=== PATIENT | female | born 1975 | race Asian ===

== ENCOUNTER 2018-07-29 03:07 | Inpatient (IN) | payer OTHER ==
[2018-07-29 03:42] VITALS: BMI 27.6
[2018-07-29] MEDS ORDERED: Ondansetron PF 4 MG/2 ML Vial IVP PRN ×3 (04:12→13:33)
[2018-07-29] MEDS ORDERED: Promethazine HCl 25 MG/ML VIAL IM PRN ×2 (04:12→05:27)
[2018-07-29] MEDS ORDERED: Acetaminophen 500 MG TAB PO PRN (04:12)
[2018-07-29] MEDS ORDERED: Butorphanol Tartrate 1 MG/ML VIAL SLOW IVP PRN (04:12)
[2018-07-29] MEDS: Lactated Ringer's 1,000 ML IV SCH ×3 (04:13→08:24)
[2018-07-29] MEDS ORDERED: Methylergonovine 0.2 MG/ML VIAL IM PRN (04:15)
[2018-07-29] MEDS ORDERED: Carboprost 250 MCG/ML AMP IM PRN (04:15)
[2018-07-29] MEDS ORDERED: Misoprostol 200 MCG TAB RC PRN (04:15)
[2018-07-29] MEDS ORDERED: NS w/ Oxytocin 10 units 500 ML IV SCH ×2 (04:15)
[2018-07-29] MEDS ORDERED: Ibuprofen 800 MG TAB PO PRN (04:15)
[2018-07-29] MEDS ORDERED: Lidocaine 1% (PF) 30 ML VIAL SC PRN (04:15)
[2018-07-29] MEDS ORDERED: NS / Oxytocin 40 units/1000ml 1,000 ML IV SCH ×2 (04:15→13:45)
[2018-07-29 04:35] LABS: Hemoglobin 11.3 g/dL (12.0-16.0); Mean Corpuscular HGB CONC 31.8 g/dL (32.0-36.0); Mean Corpuscular Hemoglobin 28.4 pg (27.0-31.0); Mean Corpuscular Volume 89.3 fL (78.0-98.0); Mean Platelet Volume 9.1 fL (7.4-10.4); Platelet Count 213 thou/uL (130-400); RBC Distribution Width 11.4 % (11.5-14.5); Red Blood Cell (RBC) Count 3.98 mill/uL (4.20-5.40)
[2018-07-29] MEDS ORDERED: Fentanyl 4 mcg/Bup 0.1% Cadd 100 ML ONE (04:49)
[2018-07-29 05:09] LABS: Syphilis Antibody Nonreactive (Nonreactive)
[2018-07-29 05:10] LABS: HBSAg Index 0.16 S/CO (0-0.99); HIV (1/2) Antibody/Antigen Non-Reactive (NonReactive); HIV 1/2 INDEX 0.13 S/CO (<1.00); Hep B Surf Ag Non-Reactive S/CO (NonReactive)
[2018-07-29] MEDS ORDERED: diphenhydrAMINE 50 MG/ML VIAL IVP PRN (05:27)
[2018-07-29] MEDS ORDERED: ePHEDrine/0.9% NaCl/PF SYRINGE 50 mg/10 ml SLOW IVP PRN (05:27)
[2018-07-29] MEDS ORDERED: Eucerin (Mineral Oil/Petrolatum,White) 30 gm Jar TOP PRN (05:27)
[2018-07-29] MEDS ORDERED: Naloxone HCl 0.4 mg/ml Vial IVP PRN ×2 (05:27)
[2018-07-29] MEDS ORDERED: Acetaminophen 325 MG TAB PO PRN (05:27)
[2018-07-29] MEDS ORDERED: Lactated Ringer's 500 ML IV PRN (05:27)
[2018-07-29] MEDS ORDERED: Communication Order-Pharmacy FS SCH (05:30)
[2018-07-29] MEDS ORDERED: Fentanyl 4 mcg/Bupivacaine 0.1% Cassette 100 ML EPIDURAL SCH (05:30)
[2018-07-29] MEDS ORDERED: Lidocaine 2% MPF 10 ML AMP (For Epidural Use) ONE (08:37)
[2018-07-29] MEDS ORDERED: Adacel (T-DAP) 0.5 ML VIAL IM ONE (13:33)
[2018-07-29] MEDS ORDERED: Milk Of Magnesia 30 ML UDCUP PO PRN (13:33)
[2018-07-29] MEDS ORDERED: Bisacodyl 10 MG SUPP PR PRN (13:33)
[2018-07-29] MEDS ORDERED: diphenhydrAMINE 25 MG CAP PO PRN (13:33)
[2018-07-29] MEDS ORDERED: Lanolin Ointment 7 GM TUBE TOP PRN (13:33)
[2018-07-29] MEDS ORDERED: Preparation H Ointment 28 GM TUBE PR PRN (13:33)
[2018-07-29] MEDS: Ibuprofen 800 MG TAB PO SCH (16:11)
[2018-07-29] MEDS: Ferrous Sulfate 325 MG TAB PO SCH (17:40)
[2018-07-29] MEDS ORDERED: HYDROcodone/Acetaminophen 5/325 mg Tablet PO PRN ×2 (18:23→18:24)
[2018-07-29] MEDS ORDERED: Zolpidem Tartrate 5 MG TAB PO PRN (18:24)
[2018-07-29] MEDS: Docusate Calcium (SURFAK) 240 MG CAP PO SCH (21:20)
[2018-07-30] MEDS: Ibuprofen 800 MG TAB PO SCH ×3 (00:55→09:10)
[2018-07-30] MEDS: Ferrous Sulfate 325 MG TAB PO SCH (07:28)
[2018-07-30 08:03] VITALS: TEMP 98.3
[2018-07-30] MEDS ORDERED: Prenatal Vitamin 1 TAB PO SCH (09:00)
[2018-07-30] MEDS: Docusate Calcium (SURFAK) 240 MG CAP PO SCH (09:10)
[2018-07-30] MEDS ORDERED: Benzocaine/Menthol 20-0.5% 60 ML CAN TOP PRN (09:35)
[2018-07-30 11:53] VITALS: BP 116/73
== END 2018-07-30 17:00 | disposition home or self-care (01) | DRG 807 ==
LOC: L&D/OP 03:07 → L&D 04:56 → 3SW 16:23
PROVIDERS: ADMIT Obstetrics & Gynecology; ATTEND Obstetrics & Gynecology
PROC: 10E0XZZ Delivery of Products of Conception, External Approach (ICD-10-PCS; principal; 2018-07-29)
PROC: 0HQ9XZZ Repair Perineum Skin, External Approach (ICD-10-PCS; 2018-07-29)
PROC: 10907ZC Drainage of Amniotic Fluid, Therapeutic from Products of Conception, Via Natural or Artificial Opening (ICD-10-PCS; 2018-07-29)
DX: O36.8130 Decreased fetal movements, third trimester, not applicable or unspecified (principal); Z37.0 Single live birth; O70.0 First degree perineal laceration during delivery; Z3A.39 39 weeks gestation of pregnancy
CPT/HCPCS: 51702; 85027; 86780; 86850; 86900; 86901; 87340; 87389; 99285; J2001